=== PATIENT | male | born 1995 | race Caucasian/White ===

== ENCOUNTER 2018-11-27 12:59 | Day surgery (SDC) | payer OTHER ==
[2018-11-27] VITALS (14 sets, daily range): BP systolic 87–115; BP diastolic 51–65; PULSE 52–66; RESP 11–20; Ht 180.3 cm; Wt 73.2 kg
[~2018-11-27] VITALS: Ht 180.3 cm; Wt 73.2 kg
--- NOTE | 2018-11-27 15:15 | RADRPT ---
Vent Rate: 52 bpm RR Interval: 0 msec NV Interval: 124 msec QRS Duration: 90 msec QT Interval: 418 msec QTC Interval: 388 msec P-R-T [place]: 48 - 73 - 56 degrees Sinus bradycardia Otherwise normal ECG Electronically Signed By: Gregory Wisdom
[2018-11-27] MEDS ORDERED: LACTATED RINGER'S 1,000 ML IV* SCH (15:30)
[2018-11-27] MEDS ORDERED: CEFAZOLIN 2 GM/50 ML (PMX) 50 ML IVPB SCH (15:30)
--- NOTE | 2018-11-27 16:14 | HPN ---
Date/Time of Note Date/Time of Note DATE: 11/27/18 TIME: 16:14 Interval H&P Admission Note Pt. seen H&P reviewed: No system changes ROME WARD Nov 27, 2018 16:14
--- NOTE | 2018-11-27 16:52 | PREAC ---
Date/Time of Note Date/Time of Note DATE: 11/27/18 TIME: 16:51 Anesthesia Eval and Record Evaluation Time Pre-Procedure Interview DATE: 11/27/18 TIME: 16:51 Age 23 Sex male NPO: 8 hrs Preoperative diagnosis right ring and small finger metacarpal neck fracture Planned procedure CLOSED REDUCTION PERCUTAEOUS PINNING Past Medical History Past Medical History: Includes Recreational drugs: Marijuana (everyday), Cocaine (1 month ago) Surgery & Anesthesia Issues No known issue Meds Anticoagulation: No Beta Mala within 24 hr: No Reason Beta Mala not given: Pt. not on B-Mala No Active Prescriptions or Reported Meds Current Medications Lactated Ringer's 1,000 ml @ 0 mls/hr Q0M IV* ; Start 11/27/18 at 15:30; Stop 11/27/18 at 20:00 Cefazolin Sodium/ Dextrose 50 ml @ 100 mls/hr PREOP IVPB ; Start 11/27/18 at 15:30; Stop 11/27/18 at 20:00 Meds reviewed: Yes Allergies Coded Allergies: No Known Allergy (Unverified , 11/27/18) Allergies Reviewed: Yes Labs/Studies Labs Reviewed: Reviewed by anesthesiologist Result Diagram: 11/27/18 1411 11/27/18 1411 Laboratory Tests 11/27/18 14:11 test: N/A Studies: ECG Pre-procedure Exam Last vitals Vital Signs Date Temp Pulse Resp B/P (MAP) Pulse Ox O2 O2 Flow FiO2 Time Delivery Rate 11/27/18 98.5 66 16 115/65 100 Room Air 14:15 (82) Airway: Adequate mouth opening Mallampati: Mallampati II Teeth: Normal Lung: Normal Heart: Normal ASA Physical Status ASA physical status: 2 Emergency: None Planned Anesthetic General/MAC: ETT Pre-operative Attestations Prior to commencing anesthesia and surgery, the patient was re-evaluated, there was verification of: *The patient's identity *The results of appropriate recent lab work and preoperative vital signs *The above evaluation not changing prior to induction *Anesthetic plan, risk benefits, alternative and complications discussed with patient/family; questions answered; patient/family understands, accepts and wishes to proceed. REJI IRIZARRY Nov 27, 2018 16:52
[2018-11-27] MEDS ORDERED: CEFAZOLIN 1 GM INJ ONE (17:10)
[2018-11-27] MEDS ORDERED: ROCURONIUM 50 MG INJ ONE (17:10)
[2018-11-27] MEDS ORDERED: MIDAZOLAM 1 MG/ML 2 ML INJ ONE (17:10)
[2018-11-27] MEDS ORDERED: FENTAnyl 50 MCG/ML VIAL ONE (17:10)
[2018-11-27] MEDS ORDERED: ROPIVACAINE 0.5 % 30 ML VIAL ONE (17:10)
[2018-11-27] MEDS ORDERED: PROPOFOL 20 ML ONE (17:10)
[2018-11-27] MEDS ORDERED: POLYMYXIN/BACITRACIN 1L IRRIG ONE (17:13)
[2018-11-27] MEDS ORDERED: EPHEDrine 50 MG INJ ONE (17:29)
[2018-11-27] MEDS ORDERED: EPINEPHrine 0.1 MG/ML SYG ONE (17:29)
[2018-11-27] MEDS ORDERED: METOCLOPRAMIDE 10 MG INJ IV PRN (17:30)
[2018-11-27] MEDS ORDERED: FENTAnyl 50 MCG/ML VIAL IV PRN ×3 (17:30)
[2018-11-27] MEDS ORDERED: HYDROmorphONE 1 MG/5 ML IV SYRINGE IV PRN ×3 (17:30)
[2018-11-27] MEDS ORDERED: ONDANSETRON 4 MG INJ IV PRN (17:30)
[2018-11-27] MEDS ORDERED: MEPERIDINE 25 MG INJ IV PRN (17:30)
[2018-11-27] MEDS ORDERED: OXYCODONE/ACETAMINOPHEN (5/325) TAB PO PRN ×2 (17:30)
[2018-11-27] MEDS ORDERED: DIPHENHYDRAMINE 50 MG INJ IV PRN (17:30)
[2018-11-27] MEDS ORDERED: KETOROLAC 30 MG INJ ONE (18:04)
[2018-11-27] MEDS ORDERED: METOCLOPRAMIDE 10 MG INJ ONE (18:04)
[2018-11-27] MEDS ORDERED: DEXAMETHASONE 4 MG/ML 5 ML INJ ONE (18:04)
[2018-11-27] MEDS ORDERED: ONDANSETRON 4 MG INJ ONE (18:04)
--- NOTE | 2018-11-27 18:14 | OPPN ---
Date/Time of Note Date/Time of Note DATE: 11/27/18 TIME: 18:14 Operative Report Preoperative Diagnosis Right ring and small finger metacarpal neck fractures, extra-articular Postoperative Diagnosis Right ring and small finger metacarpal neck fractures, extra-articular Operation/Procedure Performed Right ring and small finger metacarpal neck fractures, extra-articular ORIF Surgeon see signature line food service assistant none Anesthesia: general Estimated blood loss: 0 - 10 ml's Transfusion Required none Specimen none Grafts/Implants none Complications none ROME WARD Nov 27, 2018 18:14
--- NOTE | 2018-11-27 18:22 | PAC ---
Date/Time of Note Date/Time of Note DATE: 11/27/18 TIME: 18:21 Post-Anesthesia Notes Post-Anesthesia Note Last documented vital signs Vital Signs Date Temp Pulse Resp B/P (MAP) Pulse Ox O2 O2 Flow FiO2 Time Delivery Rate 11/27/18 98.6 66 16 115/65 100 Room Air 18:15 (82) Activity: WNL Respiratory function: WNL Cardiovascular function: WNL Mental status: Baseline Pain reasonably controlled: Yes Hydration appropriate: Yes Nausea/Vomiting absent: Yes GIO HITCHCOCK MD Nov 27, 2018 18:22
--- NOTE | 2018-11-28 00:02 | OPR ---
DATE OF OPERATION: 11/27/2018 SURGEON: Erick Tay MD ANESTHESIA: General. PREOPERATIVE DIAGNOSES: 1. Right ring finger metacarpal neck fracture, extraarticular, displaced. 2. Right small finger metacarpal neck fracture, extraarticular, displaced. POSTOPERATIVE DIAGNOSES: 1. Right ring finger metacarpal neck fracture, extraarticular, displaced. 2. Right small finger metacarpal neck fracture, extraarticular, displaced. PROCEDURE: 1. Open reduction internal fixation right ring finger metacarpal neck fracture, extraarticular, disp laced. 2. Open reduction internal fixation right small finger metacarpal neck fracture, extraarticular, dis placed. OPERATIVE FINDINGS: Displaced irreducible right ring and small finger metacarpal neck fractures with a need for open reduction internal fixation. INDICATION FOR PROCEDURE: A 23-year-old male with injury to the right hand who was seen in clinic an d diagnosed with displaced metacarpal neck fractures. We discussed the options, the patient elected to proceed with surgical intervention, understanding the risks and benefits. DESCRIPTION OF PROCEDURE: The patient was seen in the preoperative area and all further questions we re answered. Again, he gave informed consent, understanding the risks and benefits. The patient was taken to operative suite and placed in the supine position. The anesthesia team performed a periphe ral nerve block and the patient was placed under general anesthesia. Tourniquet placed on the right upper extremity and right upper extremity was prepped with ChloraPrep stick and draped in the usual s terile fashion. Ancef 2 grams IV was given and x-ray imaging was brought and an attempt was made at a closed reduction. I was unable to close reduce the fractures and decision was made to proceed with open reduction internal fixation. A longitudinal incision over the small finger metacarpal neck was utilized with sharp dissection carried down through skin and subcutaneous tissue. The extensor tend ons were retracted and protected and the fracture site was identified. A 15 blade knife and Calhoun el evator were used to free up the callus formation which had formed and the fracture was reduced into a more anatomic position. K-wires were used to secure the fracture fragments retrograde from the meta carpal head into the metacarpal base. A total of two 0.035 K-wires were used to secure the fracture and the pins were cut short. Wound is copiously irrigated. Skin closed with 5-0 nylon. Attention w as turned to the ring finger. A longitudinal incision was made of the ring finger. Sharp dissection carried down through skin and subcutaneous tissue. The extensor tendon was protected and the fractu re site was identified. A 15 blade knife was used as well as a Calhoun elevator to reduce the fracture . After the fracture was reduced into a more anatomic position, two 0.035 K-wires were driven retrog rade from the metacarpal head into the metacarpal base securing the fracture fragments. The pins wer e cut short and wound copiously irrigated. Skin closed with 5-0 nylon. X-ray imaging showed appropr iate hardware placement and bony alignment. Xeroform placed over the wounds followed by sterile gauz e, Webril, and a short arm ulnar gutter splint. Tourniquet deflated after 35 minutes. The patient w as awakened from anesthesia. He was taken to the postoperative suite in stable condition, tolerated procedure well without complication. SPECIMENS: None. ESTIMATED BLOOD LOSS: 5 mL. COUNTS: Sponge, instrument, needle counts correct. TOURNIQUET TIME: 35 minutes. CONDITION ON DISCHARGE: Stable. The patient was given a nonrefillable 5-day prescription for pain medication for surgery today. Dictated By: ERICK CASE/XOCHILT Conf#: [id number] DID#: [id number]
== END 2018-11-27 19:55 | disposition home or self-care (01) ==
LOC: SDS 12:59
PROVIDERS: ATTEND Orthopaedic Surgery Hand Surgery
DX: S62.336D Displaced fracture of neck of fifth metacarpal bone, right hand, subsequent encounter for fracture with routine healing (principal); S62.334D Displaced fracture of neck of fourth metacarpal bone, right hand, subsequent encounter for fracture with routine healing; X58.XXXD Exposure to other specified factors, subsequent encounter
CPT/HCPCS: 26615; 71045; 73130; 80048; 85025; 85610; 85730; 93005; C1713; J0690; J1100; J1885; J2250; J2405; J2765; J2795; J3010; Z7512; Z7610; J0171

== ENCOUNTER 2019-02-06 14:34 | Day surgery (SDC) | payer OTHER ==
[2019-02-06] VITALS (11 sets, daily range): BP systolic 101–119; BP diastolic 58–66; PULSE 78–88; RESP 12–20; Ht 180.3 cm; Wt 85.6 kg
[~2019-02-06] VITALS: Ht 180.3 cm; Wt 85.6 kg
[~2019-02-06 14:34] MED LIST: CEFAZOLIN 2 GM/50 ML (PMX) 50 ML IVPB ONE; LACTATED RINGER'S 1,000 ML IV SCH
--- NOTE | 2019-02-06 15:56 | PREAC ---
Date/Time of Note Date/Time of Note DATE: 02/06/19 TIME: 15:55 Anesthesia Eval and Record Evaluation Time Pre-Procedure Interview DATE: 02/06/19 TIME: 15:55 Age 23 Sex male NPO: 8 hrs Preoperative diagnosis R finger hardware Planned procedure R finger hardware removal Past Medical History Past Medical History: None Surgery & Anesthesia Issues No known issue Meds Anticoagulation: No Beta Mala within 24 hr: No Reason Beta Mala not given: Pt. not on B-Mala No Active Prescriptions or Reported Meds Current Medications Lactated Ringer's 1,000 ml @ 25 mls/hr Q24H IV ; Start 02/06/19 at 07:00 Meds reviewed: Yes Allergies Coded Allergies: No Known Allergy (Unverified , 11/27/18) Allergies Reviewed: Yes Labs/Studies Labs Reviewed: Reviewed by anesthesiologist test: N/A Pre-procedure Exam Airway: Adequate mouth opening, Adequate thyromental dist Mallampati: Mallampati II Teeth: Normal Lung: Normal Heart: Normal ASA Physical Status ASA physical status: 1 Emergency: None Planned Anesthetic General/MAC: ETT Nerve block: Brachial plexus (right) Planned Pain Management Single shot nerve block Pre-operative Attestations Prior to commencing anesthesia and surgery, the patient was re-evaluated, there was verification of: *The patient's identity *The results of appropriate recent lab work and preoperative vital signs *The above evaluation not changing prior to induction *Anesthetic plan, risk benefits, alternative and complications discussed with patient/family; questions answered; patient/family understands, accepts and wishes to proceed. GHADA MONTAGUE Feb 06, 2019 15:56
[2019-02-06] MEDS ORDERED: ONDANSETRON 4 MG INJ IV PRN (16:00)
[2019-02-06] MEDS ORDERED: MEPERIDINE 25 MG INJ IV PRN (16:00)
[2019-02-06] MEDS ORDERED: HYDROmorphONE 1 MG/5 ML IV SYRINGE IV PRN ×3 (16:00)
[2019-02-06] MEDS ORDERED: METOCLOPRAMIDE 10 MG INJ IV PRN (16:00)
[2019-02-06] MEDS ORDERED: ALBUTEROL 0.083% (NEB) 2.5 MG/3 ML AMP HHN PRN (16:00)
[2019-02-06] MEDS ORDERED: DIPHENHYDRAMINE 50 MG INJ IV PRN (16:00)
[2019-02-06] MEDS ORDERED: FENTAnyl 50 MCG/ML VIAL IV PRN ×3 (16:00)
[2019-02-06] MEDS ORDERED: OXYCODONE/ACETAMINOPHEN (5/325) TAB PO PRN (16:00)
--- NOTE | 2019-02-06 16:56 | HPN ---
Date/Time of Note Date/Time of Note DATE: 02/06/19 TIME: 16:55 Interval H&P Admission Note Pt. seen H&P reviewed: No system changes ROME WARD Feb 06, 2019 16:56
[2019-02-06] MEDS ORDERED: ROPIVACAINE 0.5 % 30 ML VIAL ONE (17:03)
[2019-02-06] MEDS ORDERED: MIDAZOLAM 1 MG/ML 2 ML INJ ONE (17:04)
--- NOTE | 2019-02-06 17:55 | OPPN ---
Date/Time of Note Date/Time of Note DATE: 02/06/19 TIME: 17:55 Operative Report Preoperative Diagnosis Right small finger and ring finger metacarpal deep buried hardware x4 Postoperative Diagnosis Right small finger and ring finger metacarpal deep buried hardware x4 Operation/Procedure Performed Removal of Right small finger and ring finger metacarpal deep buried hardware x4 Surgeon see signature line tutoring assistant none Anesthesia: general Estimated blood loss: 0 - 10 ml's Transfusion Required none Specimen k wires x4 Grafts/Implants none Complications none ROME WARD Feb 06, 2019 17:55
[2019-02-06] MEDS ORDERED: SUCCINYLCHOLINE CHLORIDE 100 MG/5 ML SYG IV ONE (18:01)
[2019-02-06] MEDS ORDERED: PROPOFOL 20 ML ONE (18:01)
[2019-02-06] MEDS ORDERED: LIDOCAINE 100 MG SYRINGE ONE (18:01)
[2019-02-06] MEDS ORDERED: CEFAZOLIN 1 GM INJ ONE (18:01)
--- NOTE | 2019-02-06 18:25 | OPR ---
DATE OF OPERATION: 02/06/2019 SURGEON: Erick Tay MD. ANESTHESIA: General. PREOPERATIVE DIAGNOSES: 1. Right small finger deep retained hardware, ulnar metacarpal. 2. Right small finger deep retained hardware, radial metacarpal. 3. Right ring finger deep retained hardware, ulnar metacarpal. 4. Right ring finger deep retained hardware, radial metacarpal. POSTOPERATIVE DIAGNOSIS: 1. Right small finger deep retained hardware, ulnar metacarpal. 2. Right small finger deep retained hardware, radial metacarpal. 3. Right ring finger deep retained hardware, ulnar metacarpal. 4. Right ring finger deep retained hardware, radial metacarpal. PROCEDURE: 1. Removal of deep hardware, right small finger ulnar metacarpal. 2. Removal of deep hardware, right small finger radial metacarpal. 3. Removal of deep hardware, right ring finger ulnar metacarpal 4. Removal of deep hardware, right ring finger radial metacarpal. OPERATIVE FINDINGS: K-wires x4, buried, deep. INDICATION FOR PROCEDURE: A 23-year-old male with injury of the right hand, who was seen in clinic a nd diagnosed with fractures of the ring finger and small finger metacarpals. He underwent surgical f ixation and required removal of deep hardware. We discussed the options and the patient elected to p roceed, understanding the risks and benefits. DESCRIPTION OF PROCEDURE: The patient was seen in the preoperative area and all further questions we re answered. Again, he gave informed consent, understanding risks and benefits. He was taken to ope rative suite and placed in supine position. He was placed under general anesthesia and Ancef 2 grams IV given. Tourniquet was placed in the right upper extremity and right upper extremity was prepped with ChloraPrep stick and draped in usual sterile fashion. Esmarch bandage was used to exsanguinate the extremity and tourniquet inflated to 250 mmHg. Attention was first turned to the ulnar aspect of the right small finger metacarpal and x-ray imaging localized the K-wire, which was buried and deep. A 15-blade knife was used to dissect down through skin and subcutaneous tissue. Tenotomy scissor d ivided the soft tissues overlying the deep hardware and retractors were placed. The hardware was tabitha ntified at the head of the metacarpal and was removed using a needle tractor driver teamster. Attention was then turn ed to the radial aspect of the small finger metacarpal and a similar procedure was performed with sha rp dissection carried down through skin and subcutaneous tissue through a separate incision. Tenotom y scissors divided the soft tissues overlying the deep hardware and the deep K-wire was removed using a needle tractor driver teamster. These wounds were copiously irrigated and skin closed with 5-0 nylon. Attention w as then turned to the ring finger and the K-wires were identified under x-ray imaging and needle plac ement. Attention was first turned to the ulnar metacarpal and a sharp dissection was carried down th rough skin and subcutaneous tissue. Tenotomy scissors divided the soft tissues overlying the deep bu ried hardware, which was removed using a needle tractor driver teamster. Attention was then turned to the radial aspe ct of the ring finger metacarpal and a separate incision was made with sharp dissection carried down through skin and subcutaneous tissue. Tenotomy scissor divided the soft tissues overlying the deep b uried hardware, which was then visualized and removed using a needle tractor driver teamster. Wounds were copiously i rrigated. Skin closed with 5-0 nylon. Xeroform placed over wound followed by sterile gauze, Webril, and bias bandage. Tourniquet deflated after 18 minutes. The patient was awakened from anesthesia. He was taken to postoperative suite in stable condition, tolerated the procedure well without compli cation. SPECIMENS: K-wire x4. ESTIMATED BLOOD LOSS: 5 mL. COUNTS: Sponge, instrument, needle counts were correct. TOURNIQUET TIME: 18 minutes. CONDITION ON DISCHARGE: Stable. The patient was given a nonrefillable 5-day prescription for pain medication for surgery today. Dictated By: ERICK CASE/XOCHILT Conf#: [id number] DID#: [id number]
--- NOTE | 2019-02-07 13:02 | PAC ---
Date/Time of Note Date/Time of Note DATE: 02/07/19 TIME: 13:02 Post-Anesthesia Notes Post-Anesthesia Note Last documented vital signs Vital Signs Date Temp Pulse Resp B/P (MAP) Pulse Ox O2 O2 Flow FiO2 Time Delivery Rate 02/06/19 82 20 109/65 95 Room Air 19:04 (80) 02/06/19 98.3 6.0 18:05 Activity: WNL Respiratory function: WNL Cardiovascular function: WNL Mental status: Baseline Pain reasonably controlled: Yes Hydration appropriate: Yes Nausea/Vomiting absent: Yes GHADA MONTAGUE Feb 07, 2019 13:02
== END 2019-02-06 19:50 | disposition home or self-care (01) ==
LOC: SDS 14:34
PROVIDERS: ATTEND Orthopaedic Surgery Hand Surgery
DX: Z47.2 Encounter for removal of internal fixation device (principal)
CPT/HCPCS: 26320; 73130; J0690; J2001; J2175; J2250; J2405; J2795; Z7512; Z7610